=== PATIENT | male | born 1965 | race Caucasian/White ===

== ENCOUNTER 2016-10-26 22:54 | Emergency (ER) | payer BC, OTHER ==
[~2016-10-26] VITALS: Ht 185.4 cm; Wt 92.6 kg
[~2016-10-26 22:54] MED LIST: MULT1TAB46 PO; PRIL20TA2 PO
[2016-10-26 23:02] VITALS: BP 161/111; PULSE 105; RESP 18; TEMP 98.1; O2SAT 96
[2016-10-26] MEDS ORDERED: ALBUAER3 INH (23:58)
--- NOTE | 2016-10-27 00:22 | PD ---
HPI Chief Complaint: Foreign Body Time Seen by Provider: 00:17 Travel History International Travel<30 days: No Contact w/Intl Traveler<30days: No Traveled to known affect area: No History of Present Illness HPI 51-year-old right-handed male presents to the emergency department with fishhook cruz from a triple fishhook stuck in his left thumb. Patient states she attempted to remove this on his own without success and presents now for fishhook removal. Patient's tetanus status is current and less than 5 years. Patient is not diabetic. Patient denies any numbness tingling or weakness of the thumb. Patient denies other complaints. Patient rates pain 2 over 10 in intensity. PFSH Past Medical History Narrative Medical Asthma, dental extraction, tobacco use alcohol use; nursing notes reviewed Asthma: Yes Diminished Hearing: No Immunizations Current: No Tetanus Vaccination: < 5 Years Influenza Vaccination: No Past Surgical History Oral Surgery: Yes (teeth extractions) Social History Alcohol Use: Yes (socially beer or mix drinks) Tobacco Use: Yes (1 PPD) Substance Use: No Allergies-Medications (Allergen,Severity, Reaction): Coded Allergies: No Known Allergies (Verified , 10/26/16) Reported Meds & Prescriptions Reported Meds & Active Scripts Active Reported Proair Hfa 8.5 GM Inh (Albuterol Sulfate) 90 Mcg/Act Aer 2 Puff INH Q4-6H PRN 108 mcg/actuation Review of Systems Except as stated in HPI: all other systems reviewed are Neg Physical Exam Narrative Gen.: Well-developed well-nourished male in no acute distress no respiratory distress Extremities, attention left thumb: Digit is neurovascular tendon intact with a fishhook embedded in the radial aspect of the pad of the left thumb; capillary refill is brisk and less than 2 seconds; IP joint does not appear to be involved. Data Data Last Documented VS Vital Signs Date Time Temp Pulse Resp B/P Pulse Ox O2 Delivery O2 Flow Rate FiO2 10/26/16 23:02 98.1 105 18 161/111 96 Orders Lidocaine Pf 1% Inj (Xylocaine-Mpf 1% In (10/27/16 00:30) Finger ([id number]) (10/27/16 ) Sulfamet-Trimeth Ds 800-160 Mg (Bactrim (10/27/16 01:00) Ibuprofen (Motrin) (10/27/16 01:00) MDM Medical Decision Making Medical Screen Exam Complete: Yes Emergency Medical Condition: Yes Medical Record Reviewed: Yes Interpretation(s) left thumb xr: No retained radiopaque foreign body and no bony abnormality identified Differential Diagnosis Embedded fishhook, puncture wound, neurovascular tendon injury, retained foreign body, fracture Narrative Course After informed verbal consent Betadine was applied at fishhook site and lidocaine 1% plain was injected for local anesthetic effect a scalpel was used to make small incision at the entry wound site and the cruz was pushed through and removed. Post fishhook cruz removal imaging study performed. Patient tolerated procedure well. Tetanus status is current. Imaging study reveals no retained radiopaque foreign body or bony abnormality. Patient given first dose of antibiotic. Patient encouraged to keep site clean and dry to return to the emergency department for any concerns or change condition Diagnosis Primary Impression: Fish hook injury of finger of left hand Qualified Code: S69.92XA - Fish hook injury of finger of left hand, initial encounter Referrals: Primary Care Physician 2 days Patient Instructions: General Instructions Additional Instructions: Keep site clean and dry Return to the emergency department for pain fever swelling drainage or any concerns Complete course of antibiotic May take [id number] acetaminophen or ibuprofen per package instructions for fever 100.4F or greater or for pain Med/Other Pt SpecificInfo: Prescription(s) given Scripts Sulfamethoxazole-Trimethoprim (Bactrim DS)800-160 Mg Tab1 Tab PO BID #14 TAB Ref 0 Prov:Jelly Crockett MD 10/27/16 Disposition: 01 DISCHARGE HOME Condition: Stable Jelly Crockett MD Oct 27, 2016 00:22
[2016-10-27] MEDS ORDERED: LIDOCAINE HCL 1% PF 30 ML VIAL INFIL ONE (00:30)
[2016-10-27] MEDS ORDERED: IBUPROFEN 800 MG TAB PO ONE (01:00)
[2016-10-27] MEDS ORDERED: SULFAMETHOXAZOLE-TRIMETHOPRIM DS 800-160 MG TAB PO ONE (01:00)
[2016-10-27] MEDS ORDERED: BACT800T5 PO (01:20)
--- NOTE | 2016-10-27 01:24 | RADRPT ---
EXAM DATE/TIME: 10/27/2016 01:10 [facility] COMPARISON: No previous studies available for comparison. INDICATIONS : Evaluate for foreign body. Patient lacerated left thumb with fishing hook today MEDICAL HISTORY : None. SURGICAL HISTORY : None. ENCOUNTER: Initial ACUITY: 1 day PAIN SCORE: 2/10 LOCATION: Left IP joint FINDINGS: Examination of the first digit of the left hand demonstrates no evidence of fracture or dislocation. No radiopaque foreign bodies are seen. The soft tissues are intact. CONCLUSION: No acute disease. Neel Edwards MD on October 27, 2016 at 1:23 Board Certified Radiologist. This report was verified electronically.
[2016-10-27 01:34] VITALS: BP 152/98
== END 2016-10-27 01:35 | disposition home or self-care (01) ==
LOC: PHED 22:54 → PHEFT 10-27 01:35
DX: S61.042A Puncture wound with foreign body of left thumb without damage to nail, initial encounter (principal); W26.8XXA Contact with other sharp object(s), not elsewhere classified, initial encounter
CPT/HCPCS: 10120; 73140